=== PATIENT | male | born 1965 | race American Indian/Alaskan Native ===

== ENCOUNTER 2022-02-16 07:06 | Day surgery (SDC) | payer OTHER ==
[~2022-02-16 07:06] MED LIST: SODIUM CHLORIDE 0.9% 1000 ML 1,000 ML IV SCH
--- NOTE | 2022-02-16 08:27 | Anesthesia Consultation ---
Anesthesia Consult and Med Hx Date of service: 02/16/22 - Airway Anesthetic Teeth Evaluation: Good ROM Head & Neck: Adequate Mental/Hyoid Distance: Adequate Mallampati Class: Class II Intubation Access Assessment: Probably Good - Pulmonary Exam CTA: Yes - Pre-Operative Health Status ASA Pre-Surgery Classification: ASA2 Proposed Anesthetic Plan: MAC - Pulmonary Hx Smoking: No Hx Asthma: No COPD: No Hx Pneumonia: No - Cardiovascular System Hx Hypertension: Yes (Not on medication) - Central Nervous System Hx Seizures: Yes (Not on medication) - Endocrine Hx Renal Disease: No Hx Liver Disease: Yes (Unspecified) Hx Insulin Dependent Diabetes: No Hx Non-Insulin Dependent Diabetes: No Hx Thyroid Disease: No - Other Systems Hx Alcohol Use: Yes (Hx. of Etoh abuse) Hx Cancer: No Hx Obesity: No - Additional Comments Anesthesia Medical History Comments: Denied previous anesthesia complications
--- NOTE | 2022-02-16 08:34 | Anesthesia Day of Surgery ---
Anesthesia Day of Surgery - Day of Surgery Patient Examined: Yes Patient H&P Reviewed: Yes Patient is NPO: Yes Beta Blockers: No Cardiac Clearance: No Pulmonary Clearance: No
[2022-02-16] MEDS ORDERED: WATER FOR IRRIG STERILE 1,000 ML BOTTLE ONE (08:36)
[2022-02-16] MEDS ORDERED: WATER FOR IRRIG STERILE 250 ML BOTTLE IR ONE (08:36)
[2022-02-16] MEDS ORDERED: ONDANSETRON 4 MG/2 ML INJ ONE (08:40)
[2022-02-16] MEDS ORDERED: fentaNYL 100 MCG/2 ML INJ ONE (08:40)
[2022-02-16] MEDS ORDERED: propofoL 200 MG/20 ML VIAL IV ONE ×3 (08:41→09:25)
--- NOTE | 2022-02-16 09:42 | Procedure Note ---
Date of procedure: 02/16/22 Pre-op diagnosis: H/O Microcytic Anemia/ Cirrhosis of the Liver Post-op diagnosis: other (No Peptic Ulcer Disease noted/ o Esophagealvarices noted/ Mild to Moderate, distal Erosive Esophagitis/ Gastritis/ R/O Celiac disease/12 to 14 mm Sessile Rectal Polyp (removed)/ Few, Proximal colon Diverticuli/Normal Ileal Mucosa/ Minor,Internal Hemorrhoid) Anesthesia: MAC Surgeon: SHIVAM MCALLISTER Estimated blood loss: minimal Pathology: list Specimen disposition: to lab Condition: stable Disposition: same day (Avoid aspirin and NSAUD for 5 days; otherwise resume previous medication. Treat with PPI, and encourage fiber intake and F/U in 1 to 2 weeks ([phone]).)
--- NOTE | 2022-02-16 10:16 | Post Anesthesia Evaluation ---
- Post Anesthesia Evaluation Patient Participated: Yes Airway Patent: Yes Stable Respiratory Function: Yes Nausea/Vomiting: No Temp > 96.8F: Yes Pain Manageable: Yes Adequeate Hydration: Yes Anesthesia Complications: No Block Receding Appropriately: Not Applicable Patient on Ventilator: No
[2022-02-16 10:42] VITALS: BP 135/80
--- NOTE | 2022-02-16 12:04 | Operative Report ---
DATE OF SURGERY: 02/16/2022 PROCEDURE: Colonoscopy and hot snare polypectomy. INDICATIONS: To assess for anemia. EGD done prior to the colonoscopy showed [id number] erosive esophagitis, gastritis, but no peptic ulcer disease or esophageal varices. DESCRIPTION OF PROCEDURE: Procedure was done after getting informed consent with MAC anesthesia. Initial rectal examination was unremarkable. The instrument was passed through the rectum onto the cecum, which was identified by the ileocecal valve and appendiceal orifice. Visualization was fair to good. The cecum was also examined on the retroverted view and the terminal ileum was intubated and showed normal mucosa. There were a few minor diverticula noted in the proximal colon. The remaining part of the ascending colon, transverse colon, descending colon, and sigmoid showed normal mucosa. There were no additional polyps, colitis or diverticular disease. However, in the rectum, there was about a 12-14 mm sessile polyp noted that was removed by snare excision and retrieved with minimal bleeding. The rectum showed some minor internal hemorrhoid. ASSESSMENT: Anemia, colon polyp screening, solitary 12-14 mm sessile rectal polyp noted, removed by hot snare polypectomy and retrieved. Few proximal colon diverticula. Normal ileal mucosa. Minor internal hemorrhoid. The patient will be asked to avoid aspirin and aspirin-related products for the next few days, otherwise resume previous medication. Encouraged to take fiber supplements. Treat the patient with PPI, have the patient follow up in the office in 1-2 weeks' time. Procedure was done in the GI lab with assistance of the GI lab team, which included the GI nurse, the business office technology instructor and with assistance of Anesthesia. TID: [id number] RECEIPT: [id number] KATIA/SHEYLA
--- NOTE | 2022-02-16 12:10 | Operative Report ---
DATE OF SURGERY: 02/16/2022 PROCEDURE PERFORMED: EGD with biopsy. INDICATIONS: This is a 56-year-old [place] gentleman originally from [facility], who has a history of seizure disorder, history of alcohol use, which he has since given. He was noted to have microcytic anemia. EGD and subsequently colonoscopy was done to assess for his microcytic anemia. DESCRIPTION OF PROCEDURE: Procedure was done after getting informed consent with MAC anesthesia. The instrument was passed through the hypopharynx into the esophagus, which showed no esophageal varices. The distal esophagus showed mild to moderate erosive esophagitis. Photodocumentation and biopsy was done to assess for the severity of the erosive esophagitis. Stomach showed gastritis, but no gastric ulcers were noted in the straight or the retroverted view. Biopsy was done from the gastric antrum, gastric body and angular incisura to rule out for H. pylori and atrophic gastritis. The pylorus was patent. The duodenum in the first and second portion appeared normal. Biopsy was done from the second part to rule out for possible celiac disease. There was minimal bleeding associated with the procedure. No complications associated with the procedure. ASSESSMENT: Anemia, history of cirrhosis of the liver, no esophageal varices noted, [id number] erosive esophagitis, gastritis, rule out celiac disease. PLAN: To have the patient avoid aspirin and aspirin-related products for the next few days. Treat the patient with PPI and to do a colonoscopy for further assessment. The patient will also be asked to resume previous medication. Follow up in the office in 1-2 weeks' time and I have strongly advised to refrain from drinking alcohol. Procedure was done in the GI lab with assistance of the GI lab team, which included the GI nurse, the network technology instructor and with assistance of anesthesia. TID: [id number] RECEIPT: [id number] KATIA/MOY
== END 2022-02-16 10:40 | disposition home or self-care (01) ==
LOC: GIO 07:06
DX: D64.9 Anemia, unspecified (principal); K57.30 Diverticulosis of large intestine without perforation or abscess without bleeding; K64.8 Other hemorrhoids; D12.8 Benign neoplasm of rectum; K74.69 Other cirrhosis of liver; K29.70 Gastritis, unspecified, without bleeding; K20.90 Esophagitis, unspecified without bleeding; B96.81 Helicobacter pylori [H. pylori] as the cause of diseases classified elsewhere; I10 Essential (primary) hypertension; Z79.899 Other long term (current) drug therapy; Z72.89 Other problems related to lifestyle; Z98.890 Other specified postprocedural states; Z96.642 Presence of left artificial hip joint
CPT/HCPCS: 43239; 45385; 88305; J2405; J2704; J3010; J7030; 88342